=== PATIENT | male | born 1995 | race African-American/Black ===

== ENCOUNTER 2016-03-16 22:17 | Emergency (ER) | payer SELFPAY ==
[~2016-03-16] VITALS: Ht 172.7 cm; Wt 59.9 kg
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
[2016-03-17 00:05] VITALS: BP 114/75
[2016-03-17] MEDS ORDERED: IBUPROFEN600 MG ORAL (00:13)
[2016-03-17 00:35] VITALS: BP 114/75
--- NOTE | 2016-03-17 08:26 | Diagnostic Imaging Report ---
Indications: Head trauma, pain Technique: Continuous helical CT imaging of the brain was performed with automatic exposure control on a Siemens sensation [address] scanner. Axial and coronal images were reconstructed at 5 mm slice thickness and interval. CTDI volume(s): 70 mGy Total DLP: 1382 mGy-cm Findings: Comparison: None. Intracranial anatomy is unremarkable. No evidence of mass or hemorrhage, other attenuation abnormality, mass effect, midline shift, hydrocephalus or increased intracranial pressure. Bone window images are unremarkable. Visualized paranasal sinuses and mastoid air cells are clear. IMPRESSION: Negative noncontrast CT scan of the brain --no evidence of acute injury. This correlates with [facility] preliminary report. The CT scanner at [facility] is accredited by the [employer] and the scans are performed using protocols designed to limit radiation exposure to as low as reasonably achievable to attain images of sufficient resolution adequate for diagnostic evaluation.
== END 2016-03-17 00:40 | disposition home or self-care (01) ==
LOC: EMR 22:59
DX: S00.81XA Abrasion of other part of head, initial encounter (principal); Y04.0XXA Assault by unarmed brawl or fight, initial encounter; Y92.59 Other trade areas as the place of occurrence of the external cause; F17.200 Nicotine dependence, unspecified, uncomplicated; R51 Headache
CPT/HCPCS: 70450; 99284

== ENCOUNTER 2019-09-12 23:36 | Emergency (ER) | payer OTHER ==
[~2019-09-12] VITALS: Ht 172.7 cm; Wt 54.4 kg
[~2019-09-12 23:36] MED LIST: IBUPROFEN600 MG ORAL
[2019-09-12 23:51] VITALS: BP 124/89
--- NOTE | 2019-09-12 23:58 | Emergency Room Report ---
History of Present Illness General Chief Complaint: Flu Like Symptoms Source: Patient Present Illness HPI This is a 23-year-old male with no past medical history. He presents with chief plaint of shortness of breath. According to triage nurse, symptom been ongoing for almost a week. Patient checked then and promptly left the department without notifying anybody. I did not see this patient. He eloped. Allergies: Coded Allergies: No Known Allergies (Unverified , 02/05/16) COVID-19 Screening Contact w/high risk pt: No Experienced COVID-19 symptoms?: Yes COVID-19 Testing performed COSMETOLOGY EDUCATOR: No Patient History Past Medical History: see triage record, old chart reviewed Past Surgical History: none Pertinent Family History: none Social History: Denies: smoking Immunizations: other Reviewed Nursing Documentation: PMH: Agreed; PSxH: Agreed Nursing Documentation-PMH Past Medical History: No Stated History Review of Systems Eye: Denies: eye pain, blurred vision ENT: Denies: ear pain, nose congestion, throat swelling Respiratory: Reports: shortness of breath; Denies: cough Cardiovascular: Denies: chest pain, palpitations Gastrointestinal: Denies: abdominal pain, diarrhea, nausea, vomiting Musculoskeletal: Denies: back pain, joint pain Skin: Denies: rash Neurological: Denies: headache, numbness Endocrine: Denies: increased thirst, increased urine Hematologic/Lymphatic: Denies: easy bruising All Other Systems: negative except mentioned in HPI Physical Exam Vital Signs Date Time Temp Pulse Resp B/P (MAP) Pulse Ox O2 Delivery O2 Flow Rate FiO2 09/12/19 23:40 98.6 92 19 124/89 (101) 100 Room Air 09/12/19 23:51 98 Medical Decision Making Diagnostic Impression: Primary Impression: Shortness of breath ER Course Patient complained of shortness of breath. He eloped from the department before I saw him. I did not see this patient. Last Vital Signs Date Time Temp Pulse Resp B/P (MAP) Pulse Ox O2 Delivery O2 Flow Rate FiO2 09/12/19 23:51 90 18 Room Air 98 09/12/19 23:51 98.6 124/89 100 Status: unchanged Disposition: ELOPED Condition: Stable [place] Back MD Sep 12, 2019 23:58
== END 2019-09-12 23:57 | disposition left against medical advice (07) ==
LOC: EMR 23:57
DX: R06.02 Shortness of breath (principal); Z53.21 Procedure and treatment not carried out due to patient leaving prior to being seen by health care provider